=== PATIENT | male | born 1975 | race Caucasian/White ===

== ENCOUNTER → 2017-07-29 | Outpatient (CLI) | payer OTHER ==
[~2017-07-29] MED LIST: OPTIRAY 320 IV PRN
--- NOTE | 2017-07-29 09:09 | DIAGNOSTIC IMAGING REPORT ---
ABDOMEN AND PELVIS CT WITH AND WITHOUT IV CONTRAST, UROGRAM PROTOCOL CT DOSE: 627.34 mGy.cm HISTORY: R31.0 Gross [id number] Elevated PSA TECHNIQUE: Multiaxial CT images of the abdomen and pelvis were performed both before and after the use of intravenous contrast to evaluate the urinary system. Maximal intensity projection images were performed at the workstation by the radiologist. A dose lowering technique was utilized adhering to the principles of ALARA. COMPARISON STUDY: None. FINDINGS: No renal or ureteral calculi. No hydronephrosis. No suspicious filling defects seen within the bilateral renal collecting systems, ureters, or bladder. Mild bladder wall thickening. No definite bladder masses. The lung bases are clear. No pneumoperitoneum. No pneumatosis. Left L5 spondylolysis. No suspicious lytic or blastic osseous lesions. A 9 mm hypodense lesion within the left hepatic lobe. This is technically too small to characterize. The gallbladder, pancreas, and adrenal glands are unremarkable. The right kidney enhances normally. There is a 13 mm left renal cyst. The spleen is top normal in size. No retroperitoneal lymphadenopathy. The prostate gland is enlarged and protrudes into the bladder base. The prostate gland measures 5.3 cm in diameter. No bowel wall thickening or obstruction. Multiple surgical clips within the right lower quadrant. IMPRESSION: 1. No renal or ureteral stones. No hydronephrosis. 2. No suspicious filling defects seen within the opacified bilateral renal collecting systems, ureters, or bladder. 3. The prostate gland is enlarged. There is mild bladder wall thickening which may be due to chronic outlet obstruction. Electronically signed by: Aron Muñoz M.D. 07/29/2017 9:08 AM Dictated Date/Time: 07/29/2017 8:59 AM
== END | disposition home or self-care (01) ==
LOC: C.CTS 07:05
PROVIDERS: ATTEND Urology
DX: R31.0 Gross hematuria (principal); R97.20 Elevated prostate specific antigen [PSA]

== ENCOUNTER → 2017-10-11 | Outpatient (CLI) | payer OTHER ==
[~2017-10-11] MED LIST changes: +GADAVIST IV PRN; -OPTIRAY 320 IV PRN
--- NOTE | 2017-10-11 09:01 | DIAGNOSTIC IMAGING REPORT ---
PROSTATE MRI COMBO CLINICAL HISTORY: 42 years-old Male presenting with ELEVATED PSA, GROSS HEMATURIA. ng/mL. TECHNIQUE: Multisequence, multiplanar MR imaging of the prostate was performed before and after the administration of intravenous contrast. Additional postprocessing was performed on a separate [employer] workstation by the radiologist for 3-D volumetric segmentation of the prostate and contouring of region(s) of interest (MARIAELENA) for targeting. IV contrast: 7.5 cc of Gadavist. COMPARISON: Abdomen and pelvis CT 07/29/2017. FINDINGS: Prostate: The prostate measures 4.9 x 4.4 x 5.6 cm (DynaCAD prostate boundary segmentation volume 57 mL). Moderate changes of benign prostatic hyperplasia. Precontrast T1 weighted imaging demonstrates no evidence of intrinsic T1 hyperintensity to suggest hemorrhage. No suspicious lesion is apparent in the transition or peripheral zones. Within the left posterior medial peripheral zone at the apex there is a 1.0 x 0.9 cm T2 slightly hypointense focus. However, this does not demonstrate restricted diffusion. There is no abnormal enhancement. Therefore, this is consistent with scarring. Seminal vesicles normal. Bladder: Normal. Bowel: Visualized portion of the rectum normal. Peritoneum: No free fluid in the pelvis. Lymph nodes: No lymphadenopathy in the visualized portion of the pelvis. Vasculature: Iliac vessels patent. Abdominal wall: Normal. Osseous structures: Normal bone marrow signal intensity. IMPRESSION: 1. No suspicious lesions within the prostate gland. 2. Benign prostatic hyperplasia. Electronically signed by: Aron Muñoz M.D. 10/11/2017 9:00 AM Dictated Date/Time: 10/11/2017 8:42 AM
== END | disposition home or self-care (01) ==
LOC: C.MRIBC 07:00
PROVIDERS: ATTEND Urology
DX: R31.0 Gross hematuria (principal); R97.20 Elevated prostate specific antigen [PSA]